=== PATIENT | female | born 1985 | race American Indian/Alaskan Native ===

== ENCOUNTER 2020-03-12 08:29 | Day surgery (SDC) | payer OTHER ==
[~2020-03-12 08:29] MED LIST: Lactated Ringers 1,000 ML IV SCH; Sodium Chloride 0.9% 10 ML SDV IV PRN; Sodium Chloride 0.9% 10 ML Syringe FLUSH PRN; Sodium Chloride 0.9% 2.5 ML Syringe FLUSH PRN
--- NOTE | 2020-03-12 09:36 | PCM.PREANE ---
Preanesthetic Assessment - Anesthesia/Transfusion/Family Hx Anesthesia History: Prior Anesthesia Without Reaction Family History of Anesthesia Reaction: No Transfusion History: No Prior Transfusion(s) Intubation History: Unknown - Review of Systems General: No Symptoms Pulmonary: No Symptoms Cardiovascular: No Symptoms Gastrointestinal: No Symptoms Neurological: No Symptoms Other: Reports: None - Physical Assessment Vital Signs: Last Vital Signs Temp 36.4 C 03/12/20 08:52 Pulse 95 03/12/20 08:52 Resp 18 03/12/20 08:52 BP 130/75 03/12/20 08:52 Pulse Ox 99 03/12/20 08:52 Height: 5 ft 6 in Weight: 115.212 kg ASA Class: 2 Mental Status: Alert & Oriented x3 Airway Class: Mallampati = 2 Dentition: Reports: Normal Dentition, Broken Tooth/Teeth (x2 upper and lower left) Thyro-Mental Finger Breadths: 3 Mouth Opening Finger Breadths: 2 ROM/Head Extension: Full Lungs: Clear to Auscultation Cardiovascular: Regular Rate, Regular Rhythm - Lab Values: Laboratory Last Values Urine HCG, Qual NEGATIVE (NEGATIVE) 03/12/20 07:45 SARS-CoV-2 RNA (STEPHIE) NEGATIVE (NEGATIVE) 03/12/20 07:20 - Allergies Allergies/Adverse Reactions: Allergies Allergy/AdvReac Type Severity Reaction Status Date / Time atropine [From Lomotil] Allergy Hives Verified 03/09/20 12:50 diphenoxylate [From Lomotil] Allergy Hives Verified 03/09/20 12:50 Penicillins Allergy Rash Verified 03/09/20 12:49 - Blood Blood Available: No - Anesthesia Plan Pre-Op Medication Ordered: None - Acknowledgements Anesthesia Type Planned: General Anesthesia Pt an Appropriate Candidate for the Planned Anesthesia: Yes Alternatives and Risks of Anesthesia Discussed w Pt/Guardian: Yes Pt/Guardian Understands and Agrees with Anesthesia Plan: Yes PreAnesthesia Questionnaire HEENT History: Reports: None Cardiovascular History: Reports: None Respiratory History: Reports: Asthma (mild) Gastrointestinal History: Reports: None Genitourinary History: Reports: Renal Calculus 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: Musculoskeletal History: Reports: None Neurological History: Reports: None Psychiatric History: Reports: Addiction Endocrine/Metabolic History: Reports: Hypothyroidism, Obesity/BMI 30+ (BMI 41.0) Other Endocrine/Metabolic History: has not taken medication for 2 years Hematologic History: Reports: None Immunologic History: Reports: None Oncologic (Cancer) History: Reports: None Dermatologic History: Reports: None - Past Surgical History Head Surgeries/Procedures: Reports: None HEENT Surgical History: Reports: None Cardiovascular Surgical History: Reports: None Respiratory Surgical History: Reports: None GI Surgical History: Reports: Cholecystectomy Female Surgical History: Reports: Section, Cystoscopy, Other (See Below) Other Female Surgeries/Procedures: Laparoscopy for Ectopic , insertion of right ureteral stent last year- still in place Endocrine Surgical History: Reports: None Neurological Surgical History: Reports: None Musculoskeletal Surgical History: Reports: None Oncologic Surgical History: Reports: None Dermatological Surgical History: Reports: None - SUBSTANCE USE Tobacco Use Within Last Twelve Months: Cigarettes Days Per Week of Alcohol Use: 7 Number of Drinks Per Day: 2 Total Drinks Per Week: 14 Recreational Drug Use History: Yes Recreational Drug Type: Reports: Marijuana/Hashish, Methamphetamine (last time 2-3 days ago) - HOME MEDS Home Medications: Home Meds . [No Known Home Meds] 03/09/20 [History] - CURRENT (IN HOUSE) MEDS Current Meds: Current Medications Lactated Ringer's (Ringers, Lactated) 1,000 mls @ 100 mls/hr IV ASDIRECTED RENUKA Sodium Chloride (Saline Flush) 2.5 ml FLUSH ASDIRECTED PRN PRN Reason: Keep Vein Open Sodium Chloride (Normal Saline) 10 ml IV ASDIRECTED PRN PRN Reason: IV Use Sodium Chloride (Saline Flush) 10 ml FLUSH ASDIRECTED PRN PRN Reason: Keep Vein Open
--- NOTE | 2020-03-12 11:59 | CT ---
INDICATION: Kidney stones. TECHNIQUE: Volumetric helical scanning of the abdomen and pelvis was performed without contrast material. Coronal and sagittal reconstructions were obtained. COMPARISON: [facility] of 11/07/2019. FINDINGS: A right ureteral stent is again demonstrated and appears to be properly positioned. The proximal pigtail is impregnated in a 2.6 x 1.9 x 1.6 cm stone in the right renal pelvis. In the same way, the distal pigtail is impregnated within a large amount of stone material. There appears to be mild right hydronephrosis. The kidneys are otherwise negative. The bladder is grossly negative. The uterus and ovaries are grossly negative. No free fluid is evident. The liver is normal in size, shape and attenuation. No bile duct dilation is evident. The spleen is within normal limits. The adrenal glands are unremarkable. The pancreas is within normal limits. No lymphadenopathy is evident. The bowel is unremarkable. The lung bases are clear. The heart is normal in size. IMPRESSION: 1. Chronic right ureteral stent with both pigtails impregnated by stone material. 2. Mild right hydronephrosis. 3. Post cholecystectomy. Please note that all CT scans at this facility use dose modulation, iterative reconstruction, and/or weight-based dosing when appropriate to reduce radiation dose to as low as reasonably achievable. Dictated by Reagan Castellano MD @ Mar 12 2020 11:43AM Signed by Dr. Reagan Castellano @ Mar 12 2020 11:57AM
== END 2020-03-12 13:25 | disposition home or self-care (01) ==
LOC: MW.SDS 08:29
PROVIDERS: ATTEND Urology
DX: N20.0 Calculus of kidney (principal); F17.210 Nicotine dependence, cigarettes, uncomplicated; E03.9 Hypothyroidism, unspecified; E66.9 Obesity, unspecified; Z01.812 Encounter for preprocedural laboratory examination; Z20.828 Contact with and (suspected) exposure to other viral communicable diseases; Z53.09 Procedure and treatment not carried out because of other contraindication; Z88.8 Allergy status to other drugs, medicaments and biological substances; Z88.0 Allergy status to penicillin; Z68.41 Body mass index [BMI] 40.0-44.9, adult; Z90.49 Acquired absence of other specified parts of digestive tract; Z79.899 Other long term (current) drug therapy
CPT/HCPCS: 74176; 81025; 87635; J7120; U0002

== ENCOUNTER 2020-03-13 11:37 | Day surgery (SDC) | payer OTHER ==
[2020-03-13] MEDS ORDERED: Midazolam 1 MG/ML 2 ML SDV ONE (12:25)
[2020-03-13] MEDS ORDERED: Propofol 200 MG/20 ML SDV ONE (12:25)
[2020-03-13] MEDS ORDERED: fentaNYL 250 MCG/5 ML SDV ONE (12:25)
[2020-03-13] MEDS ORDERED: Ketorolac 30 MG/ML SDV ONE (12:26)
[2020-03-13] MEDS ORDERED: Lidocaine 2% 5 ML SDV ONE (12:26)
[2020-03-13] MEDS ORDERED: Glycopyrrolate 0.2 MG/ML SDV ONE (12:26)
[2020-03-13] MEDS ORDERED: Ondansetron 4 MG/2 ML SDV ONE (12:26)
--- NOTE | 2020-03-13 12:38 | PCM.PREANE ---
Preanesthetic Assessment - Anesthesia/Transfusion/Family Hx Anesthesia History: Prior Anesthesia Without Reaction Family History of Anesthesia Reaction: No Transfusion History: No Prior Transfusion(s) Intubation History: Unknown - Review of Systems General: No Symptoms Pulmonary: No Symptoms Cardiovascular: No Symptoms Gastrointestinal: No Symptoms Neurological: No Symptoms Other: Reports: None - Physical Assessment Height: 5 ft 6 in Weight: 111.584 kg ASA Class: 2 Mental Status: Alert & Oriented x3 Airway Class: Mallampati = 2 Dentition: Reports: Normal Dentition, Broken Tooth/Teeth (x2 upper and lower left) Thyro-Mental Finger Breadths: 3 Mouth Opening Finger Breadths: 2 ROM/Head Extension: Full Lungs: Clear to Auscultation, Normal Respiratory Effort Cardiovascular: Regular Rate, Regular Rhythm - Allergies Allergies/Adverse Reactions: Allergies Allergy/AdvReac Type Severity Reaction Status Date / Time atropine [From Lomotil] Allergy Hives Verified 03/09/20 12:50 diphenoxylate [From Lomotil] Allergy Hives Verified 03/09/20 12:50 Penicillins Allergy Rash Verified 03/09/20 12:49 - Blood Blood Available: No - Anesthesia Plan Pre-Op Medication Ordered: None - Acknowledgements Anesthesia Type Planned: General Anesthesia Pt an Appropriate Candidate for the Planned Anesthesia: Yes Alternatives and Risks of Anesthesia Discussed w Pt/Guardian: Yes Pt/Guardian Understands and Agrees with Anesthesia Plan: Yes PreAnesthesia Questionnaire HEENT History: Reports: None Cardiovascular History: Reports: None Respiratory History: Reports: Asthma Gastrointestinal History: Reports: None Genitourinary History: Reports: Renal Calculus 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: Musculoskeletal History: Reports: None Neurological History: Reports: None Psychiatric History: Reports: Addiction Endocrine/Metabolic History: Reports: Hypothyroidism, Obesity/BMI 30+ Other Endocrine/Metabolic History: has not taken medication for 2 years Hematologic History: Reports: None Immunologic History: Reports: None Oncologic (Cancer) History: Reports: None Dermatologic History: Reports: None - Past Surgical History Head Surgeries/Procedures: Reports: None HEENT Surgical History: Reports: None Cardiovascular Surgical History: Reports: None Respiratory Surgical History: Reports: None GI Surgical History: Reports: Cholecystectomy Female Surgical History: Reports: Section, Cystoscopy, Other (See Below) Other Female Surgeries/Procedures: Laparoscopy for Ectopic , insertion of right ureteral stent last year- still in place Endocrine Surgical History: Reports: None Neurological Surgical History: Reports: None Musculoskeletal Surgical History: Reports: None Oncologic Surgical History: Reports: None Dermatological Surgical History: Reports: None - SUBSTANCE USE Tobacco Use Status *Q: Current Every Day Tobacco User Tobacco Use Within Last Twelve Months: Cigarettes Days Per Week of Alcohol Use: 2 Recreational Drug Type: Reports: Marijuana/Hashish, Methamphetamine Recreational Drug Last Use: 03/09/20 - HOME MEDS Home Medications: Home Meds . [No Known Home Meds] 03/09/20 [History] - CURRENT (IN HOUSE) MEDS Current Meds: Current Medications Discontinued Medications Fentanyl (Sublimaze) Confirm Administered Dose 250 mcg .ROUTE .STK-MED ONE Stop: 03/13/20 12:26 Glycopyrrolate (Robinul) Confirm Administered Dose 0.8 mg .ROUTE .STK-MED ONE Stop: 03/13/20 12:27 Ketorolac Tromethamine (Toradol) Confirm Administered Dose 30 mg .ROUTE .STK-MED ONE Stop: 03/13/20 12:27 Lidocaine (Xylocaine-Mpf 2%) Confirm Administered Dose 5 ml .ROUTE .STK-MED ONE Stop: 03/13/20 12:27 Midazolam HCl (Versed 1 Mg/Ml) Confirm Administered Dose 2 mg .ROUTE .STK-MED ONE Stop: 03/13/20 12:26 Ondansetron HCl (Zofran) Confirm Administered Dose 4 mg .ROUTE .STK-MED ONE Stop: 03/13/20 12:27 Propofol (Diprivan 20 Ml) Confirm Administered Dose 200 mg .ROUTE .STK-MED ONE Stop: 03/13/20 12:26
[2020-03-13] MEDS ORDERED: Lactated Ringers 1,000 ML IV SCH (13:00)
[2020-03-13] MEDS ORDERED: ceFAZolin/Dextrose,Iso-Osmotic 2 GM/50 ML Duplex Bag IV ONE (13:07)
[2020-03-13] MEDS ORDERED: fentaNYL 100 MCG/2 ML SDV ONE (14:27)
--- NOTE | 2020-03-13 15:27 | PCM.POSTAN ---
POST ANESTHESIA ASSESSMENT - MENTAL STATUS Mental Status: Alert, Oriented - VITAL SIGNS Vital Signs: Last Vital Signs Temp 36.3 C 03/13/20 14:56 Pulse 89 03/13/20 15:21 Resp 10 L 03/13/20 15:21 BP 107/62 03/13/20 15:21 Pulse Ox 95 03/13/20 15:21 - RESPIRATORY Respiratory Status: Respiratory Rate WNL, Airway Patent, O2 Saturation Stable - CARDIOVASCULAR CV Status: Pulse Rate WNL, Blood Pressure Stable - GASTROINTESTINAL GI Status: No Symptoms - PAIN Pain Score: 0 - POST OP HYDRATION Hydration Status: Adequate & Stable - OBSERVATIONS Free Text/Narrative:: No anesthesia problems
--- NOTE | 2020-03-13 15:59 | OR ---
SURGEON: Hussein Perez M.D. DATE OF PROCEDURE: 03/13/2020 PREOPERATIVE DIAGNOSES: Neglected ureteral stent for over 1 year, now has renal pelvis stone, looks like the beginning of a staghorn and a large bladder stone. The renal pelvis stone was about 2 cm. The large bladder stone about 2.5 cm. These are attached to each end of the stent. POSTOPERATIVE DIAGNOSES: Neglected ureteral stent for over 1 year, now has renal pelvis stone, looks like the beginning of a staghorn and a large bladder stone. The renal pelvis stone was about 2 cm. The large bladder stone about 2.5 cm. These are attached to each end of the stent. OPERATION: 1. ESWL for the bladder stones. 2. ESWL for the renal stone. 3. Double-J stent removal. 4. Cystolithotripsy of bladder stones with removal of all stone fragments. DESCRIPTION: The patient was given general anesthesia. She was on the lithotripsy table. The bladder stones were treated first and that received a total of 3000 shocks. The kidney stone was then treated next and that also received 3000 shocks. In the meantime, I am in the bladder breaking up the stones around the lower end of the ureteral stent. Eventually, I was able to do that enough to pull the stent out, and I went back in with the stone crushing forceps to break up some stone left behind, that was done multiple times until all the stone fragments were irrigated out. With that done, the procedure was terminated. The patient was sent to recovery room in good condition. Preop, she received 2 g of Ancef. Postop, she received 240 mg of tobramycin. PLAN: She comes back as needed. BENEDICTO / YING /[id number]
--- NOTE | 2020-03-13 16:02 | PCM48HPAN ---
Post Anesthesia Note - EVALUATION WITHIN 48HRS OF ANESTHETIC Vital Signs in Normal Range: Yes Patient Participated in Evaluation: Yes Respiratory Function Stable: Yes Airway Patent: Yes Cardiovascular Function Stable: Yes Hydration Status Stable: Yes Pain Control Satisfactory: Yes Nausea and Vomiting Control Satisfactory: Yes Mental Status Recovered: Yes Vital Signs: Last Vital Signs Temp 35.6 C L 03/13/20 15:30 Pulse 85 03/13/20 15:30 Resp 14 03/13/20 15:30 BP 98/53 L 03/13/20 15:30 Pulse Ox 96 03/13/20 15:30 - COMMENTS/OBSERVATIONS Free Text/Narrative:: No anesthesia problems
== END 2020-03-13 16:10 | disposition home or self-care (01) ==
LOC: MW.SDS 11:37
PROVIDERS: ATTEND Urology
DX: N20.0 Calculus of kidney (principal); N21.0 Calculus in bladder; J45.909 Unspecified asthma, uncomplicated; E03.9 Hypothyroidism, unspecified; E66.9 Obesity, unspecified; Z90.49 Acquired absence of other specified parts of digestive tract; Z88.0 Allergy status to penicillin; Z88.8 Allergy status to other drugs, medicaments and biological substances; Z98.890 Other specified postprocedural states; Z68.39 Body mass index [BMI] 39.0-39.9, adult
CPT/HCPCS: 50590; 52310; 52318; 88300; J0690; J1885; J2001; J2250; J2405; J2704; J3010; J3260; J3490; J7120; 00918